=== PATIENT | male | born 1975 | race Asian ===

== ENCOUNTER 2018-05-03 22:11 | Inpatient (IN) | payer OTHER ==
[~2018-05-03] VITALS: Ht 167.6 cm; Wt 49.8 kg
[2018-05-03 23:10] LABS: HEMATOCRIT 30.3 % (38.0-50.0); HEMOGLOBIN 10.7 G/DL (12.5-16.6); MCH 29.3 PG (29.0-34.0); MCHC 35.3 G/DL (30.0-36.0); PLATELET COUNT 315 K/uL (156-360); RBC DIS.WIDTH-CV 11.9 % (11.8-14.6); RBC DIS.WIDTH-SD 36.3 % (39-53); RED BLOOD COUNT 3.65 M/uL (4.00-5.50); WHITE BLOOD COUNT 14.7 K/uL (4.1-10.2)
[2018-05-03 23:17] LABS: CARBON DIOXIDE (BICARBONATE) 22.4 MEQ/L (20-31)
[2018-05-03 23:21] LABS: CHLORIDE 86 mEq/L (99-109); POTASSIUM 4.6 mEq/L (3.7-5.4); SODIUM 133 mEq/L (136-147)
[2018-05-03 23:27] LABS: UREA NITROGEN (BUN) 54 mg/dL (9-23)
[2018-05-03 23:35] LABS: GFR ESTIMATE (CALCULATED) 24 mL/min/ (58.99-99999)
[2018-05-03 23:43] LABS: GLUCOSE 775 mg/dL (70-99)
[2018-05-04] VITALS (18 sets, daily range): BP systolic 97–169; BP diastolic 71–136
[2018-05-04 00:30] LABS: APPEARANCE CLEAR ((CLEAR)); BILIRUBIN NEGATIVE; BLOOD MODERATE; COLOR YELLOW ((YELLOW)); GLUCOSE (STRIP) >=500; KETONES 20; LEUKOCYTES LARGE; NITRITE NEGATIVE; PROTEIN (STRIP) 30; UROBILINOGEN 0.2 MG/DL (0.2-1.0)
[2018-05-04 00:33] LABS: BACTERIA NONE SEEN /HPF; EPITHELIAL CELLS NONE SEEN /HPF; MUCUS TRACE /LPF; UCUL ADDED? YES; WHITE BLOOD CELLS TNTC /HPF (0-5)
[2018-05-04 04:39] LABS: POTASSIUM 3.8 mEq/L (3.7-5.4); SODIUM 137 mEq/L (136-147)
[2018-05-04 04:40] LABS: GLUCOSE 396 mg/dL (70-99)
[2018-05-04 04:44] LABS: PHOSPHORUS 3.1 mg/dL (2.5-4.9)
[2018-05-04 04:45] LABS: UREA NITROGEN (BUN) 44 mg/dL (9-23)
[2018-05-04 04:50] LABS: CHLORIDE 98 mEq/L (99-109); CREATININE 2.1 mg/dL (0.6-1.3); GFR ESTIMATE (CALCULATED) 37 mL/min/ (58.99-99999)
[2018-05-04 04:54] LABS: LIPASE 25 U/L (1.0-51.0)
[2018-05-04 09:40] LABS: CHLORIDE 96 mEq/L (99-109); POTASSIUM 3.3 mEq/L (3.7-5.4); SODIUM 136 mEq/L (136-147)
[2018-05-04 09:42] LABS: GLUCOSE 216 mg/dL (70-99)
[2018-05-04 09:45] LABS: PHOSPHORUS 2.3 mg/dL (2.5-4.9)
[2018-05-04 09:46] LABS: CREATININE 1.9 mg/dL (0.6-1.3); GFR ESTIMATE (CALCULATED) 41 mL/min/ (58.99-99999); UREA NITROGEN (BUN) 35 mg/dL (9-23)
[2018-05-04 12:04] LABS: HEMOGLOBIN A1c (GLYCOHEMOGLOB) 11.7 % (Below 5.7)
[2018-05-04 12:25] LABS: CHLORIDE 98 MEQ/L (99-109); CREATININE 1.6 MG/DL (0.6-1.3); GFR ESTIMATE (CALCULATED) 50 mL/min/ (58.99-99999); GLUCOSE 144 mg/dL (70-99); PHOSPHORUS 2.4 mg/dL (2.5-4.9); POTASSIUM 3.3 MEQ/L (3.7-5.4); SODIUM 138 MEQ/L (136-147); UREA NITROGEN (BUN) 33 mg/dL (9-23)
[2018-05-04] MEDS ORDERED: OMEPRAZOLE20 M2 PO (13:56)
[2018-05-04] MEDS ORDERED: METFORMIN HCL500 MG PO (13:56)
[2018-05-04] MEDS ORDERED: LOVASTATIN10 MG PO (13:57)
[2018-05-04 16:34] LABS: CHLORIDE 95 MEQ/L (99-109); CREATININE 1.5 MG/DL (0.6-1.3); GFR ESTIMATE (CALCULATED) 54 mL/min/ (58.99-99999); GLUCOSE 139 mg/dL (70-99); PHOSPHORUS 2.4 mg/dL (2.5-4.9); POTASSIUM 3.5 MEQ/L (3.7-5.4); SODIUM 137 MEQ/L (136-147); UREA NITROGEN (BUN) 28 mg/dL (9-23)
[2018-05-04 22:18] LABS: CHLORIDE 94 mEq/L (99-109); POTASSIUM 3.3 mEq/L (3.7-5.4); SODIUM 136 mEq/L (136-147)
[2018-05-04 22:23] LABS: CREATININE 1.8 mg/dL (0.6-1.3); GFR ESTIMATE (CALCULATED) 44 mL/min/ (58.99-99999); PHOSPHORUS 2.4 mg/dL (2.5-4.9)
[2018-05-04 22:24] LABS: UREA NITROGEN (BUN) 26 mg/dL (9-23)
[2018-05-04 22:27] LABS: GLUCOSE 214 mg/dL (70-99)
[2018-05-05 00:01] VITALS: BP 149/108
[2018-05-05 01:01] VITALS: BP 164/112
[2018-05-05 02:03] VITALS: BP 156/100
[2018-05-05 03:58] VITALS: BP 160/70
[2018-05-05 06:37] LABS: HEMOGLOBIN 10.9 G/DL (12.5-16.6); MCH 28.7 PG (29.0-34.0); MCHC 35.2 G/DL (30.0-36.0); MCV 81.6 FL (86-99); PLATELET COUNT 330 K/uL (156-360); RBC DIS.WIDTH-SD 35.3 % (39-53); WHITE BLOOD COUNT 15.6 K/uL (4.1-10.2)
[2018-05-05 07:19] VITALS: BP 128/92
[2018-05-05 08:18] LABS: POTASSIUM 3.5 MEQ/L (3.7-5.4)
[2018-05-05 14:05] LABS: CREATININE 1.5 MG/DL (0.6-1.3)
[2018-05-05 16:41] VITALS: BP 109/67
[2018-05-06 00:55] VITALS: BP 100/61
[2018-05-06 06:17] LABS: HEMATOCRIT 29.3 % (38.0-50.0); HEMOGLOBIN 10.2 G/DL (12.5-16.6); MCH 28.7 PG (29.0-34.0); MCHC 34.8 G/DL (30.0-36.0); MCV 82.3 FL (86-99); PLATELET COUNT 331 K/uL (156-360); RBC DIS.WIDTH-CV 11.7 % (11.8-14.6); RBC DIS.WIDTH-SD 35.6 % (39-53); RED BLOOD COUNT 3.56 M/uL (4.00-5.50); WHITE BLOOD COUNT 8.8 K/uL (4.1-10.2)
[2018-05-06 06:42] LABS: CHLORIDE 90 MEQ/L (99-109); CREATININE 1.6 MG/DL (0.6-1.3); GFR ESTIMATE (CALCULATED) 50 mL/min/ (58.99-99999); GLUCOSE 264 mg/dL (70-99); POTASSIUM 3.2 MEQ/L (3.7-5.4); SODIUM 133 MEQ/L (136-147); UREA NITROGEN (BUN) 25 mg/dL (9-23)
[2018-05-06 06:45] LABS: MAGNESIUM 2.5 mg/dl (1.3-2.7)
[2018-05-06 08:25] VITALS: BP 106/70
[2018-05-06 15:30] VITALS: BP 126/87
[2018-05-06 23:13] VITALS: BP 152/88
[2018-05-07 06:54] LABS: ALBUMIN 2.9 G/DL (3.2-4.8); CHLORIDE 99 MEQ/L (99-109); CREATININE 1.5 MG/DL (0.6-1.3); GFR ESTIMATE (CALCULATED) 54 mL/min/ (58.99-99999); PHOSPHORUS 2.4 mg/dL (2.5-4.9); POTASSIUM 3.6 MEQ/L (3.7-5.4); SODIUM 138 MEQ/L (136-147); UREA NITROGEN (BUN) 17 mg/dL (9-23)
[2018-05-07 07:12] LABS: GLUCOSE 98 mg/dL (70-99)
[2018-05-07 07:43] VITALS: BP 124/81
[2018-05-07 08:12] LABS: MAGNESIUM 1.9 mg/dl (1.3-2.7)
[2018-05-07 16:25] VITALS: BP 107/59
[2018-05-07 20:42] VITALS: BP 101/62
[2018-05-07 23:34] VITALS: BP 118/82
[2018-05-08 06:46] LABS: ALBUMIN 2.9 G/DL (3.2-4.8); CHLORIDE 91 MEQ/L (99-109); CREATININE 1.8 MG/DL (0.6-1.3); GFR ESTIMATE (CALCULATED) 44 mL/min/ (58.99-99999); PHOSPHORUS 2.9 mg/dL (2.5-4.9); SODIUM 132 MEQ/L (136-147); UREA NITROGEN (BUN) 20 mg/dL (9-23)
[2018-05-08 06:52] LABS: GLUCOSE 336 mg/dL (70-99); POTASSIUM 4.4 MEQ/L (3.7-5.4)
[2018-05-08 07:12] VITALS: BP 107/58
[2018-05-08] MEDS ORDERED: DIABETA2.5 MG PO (13:12)
[2018-05-08] MEDS ORDERED: LEVEMIR FL100 UNIT/1 SC ×2 (13:12)
[2018-05-08] MEDS ORDERED: LISINOPRIL2.5 MG PO (13:12)
[2018-05-08 16:43] VITALS: BP 107/64
[2018-05-08 22:12] VITALS: BP 84/52
[2018-05-08 22:46] VITALS: BP 80/50
[2018-05-09 01:11] VITALS: BP 134/90
[2018-05-09 07:25] VITALS: BP 109/74
[2018-05-09 07:29] LABS: ALBUMIN 3.1 G/DL (3.2-4.8); CHLORIDE 92 MEQ/L (99-109); CREATININE 1.8 MG/DL (0.6-1.3); GFR ESTIMATE (CALCULATED) 44 mL/min/ (58.99-99999); PHOSPHORUS 3.4 mg/dL (2.5-4.9); POTASSIUM 4.5 MEQ/L (3.7-5.4); SODIUM 133 MEQ/L (136-147); UREA NITROGEN (BUN) 23 mg/dL (9-23)
[2018-05-09 07:32] LABS: GLUCOSE 114 mg/dL (70-99)
[2018-05-09] MEDS ORDERED: NOVOLOG MI100 UNIT/3 SC (15:48)
[2018-05-09] MEDS ORDERED: INSULIN SYRING1 EA53 MC (15:56)
[2018-05-09] MEDS ORDERED: TEST STRIPS MC (15:56)
[2018-05-09] MEDS ORDERED: 1ST TIER UNILE1 EAC1 MC (15:56)
[2018-05-09] MEDS ORDERED: CEFTRIAXONE2 G1 IM (15:59)
[2018-05-09 16:25] VITALS: BP 101/67
== END 2018-05-09 18:45 | disposition home or self-care (01) | DRG 638 ==
LOC: EME 22:11 → EDBD 22:11 → 5EAST 05-04 02:39 → EDOF 05-04 02:39 → ENRESERV 05-04 02:40 → 4WEST 05-04 03:41 → ENRESERV 05-04 23:38 → 5EAST 05-05 01:50
PROVIDERS: Emergency Medicine; Internal Medicine; Physician Assistant; Specialist; Surgery
DX: E11.10 Type 2 diabetes mellitus with ketoacidosis without coma (principal); N10 Acute pyelonephritis; B96.4 Proteus (mirabilis) (morganii) as the cause of diseases classified elsewhere; N17.9 Acute kidney failure, unspecified; E87.2 Acidosis; E87.6 Hypokalemia; E11.65 Type 2 diabetes mellitus with hyperglycemia; E86.0 Dehydration; E87.1 Hypo-osmolality and hyponatremia; E83.39 Other disorders of phosphorus metabolism; R00.0 Tachycardia, unspecified; I12.9 Hypertensive chronic kidney disease with stage 1 through stage 4 chronic kidney disease, or unspecified chronic kidney disease; N18.3 Chronic kidney disease, stage 3 (moderate); E11.22 Type 2 diabetes mellitus with diabetic chronic kidney disease; D64.9 Anemia, unspecified; K21.9 Gastro-esophageal reflux disease without esophagitis; Z91.14 Patient's other noncompliance with medication regimen
CPT/HCPCS: 71046; 74176; 76770; 78582; 80048; 80048 91; 80069; 81003; 82010; 82565; 82570; 82607; 82803; 82948; 83036; 83605; 83690; 83735; 84100; 84132; 84156; 84520; 85027; 85379; 87040; 87077; 87086; 87186; 87641; 93005; 99281; 99285; A9539; A9540; J0696; J1644; J1815; J2405; J2765; J3475; J3480; J7030; J7050; J7120

== ENCOUNTER 2018-06-04 17:21 | Inpatient (IN) | payer OTHER ==
[~2018-06-04] VITALS: Ht 162.6 cm; Wt 55.0 kg
[~2018-06-04 17:21] MED LIST: 1ST TIER UNILE1 EAC1 MC; CEFTRIAXONE2 G1 IM; DIABETA2.5 MG PO; INSULIN SYRING1 EA53 MC; LEVEMIR FL100 UNIT/1 SC; LISINOPRIL2.5 MG PO; LOVASTATIN10 MG PO; METFORMIN HCL500 MG PO; NOVOLOG MI100 UNIT/3 SC; OMEPRAZOLE20 M2 PO; TEST STRIPS MC
[2018-06-04 19:43] LABS: HEMATOCRIT 31.8 % (38.0-50.0); HEMOGLOBIN 10.7 G/DL (12.5-16.6); MCH 29.2 PG (29.0-34.0); MCHC 33.6 G/DL (30.0-36.0); RBC DIS.WIDTH-CV 13.2 % (11.8-14.6); RBC DIS.WIDTH-SD 42.2 % (39-53); RED BLOOD COUNT 3.66 M/uL (4.00-5.50); WHITE BLOOD COUNT 7.8 K/uL (4.1-10.2)
[2018-06-04 19:46] LABS: CHLORIDE 101 mEq/L (99-109); POTASSIUM 4.8 mEq/L (3.7-5.4); SODIUM 141 mEq/L (136-147)
[2018-06-04 19:48] LABS: GLUCOSE 301 mg/dL (70-99)
[2018-06-04 19:49] LABS: TOTAL PROTEIN 7.6 g/dL (6.4-8.3)
[2018-06-04 19:50] LABS: TOTAL BILIRUBIN 0.4 mg/dL (0.0-1.0)
[2018-06-04 19:52] LABS: ALKALINE PHOSPHATASE 71 IU/L (3-129); GFR ESTIMATE (CALCULATED) 39 mL/min/ (58.99-99999)
[2018-06-04 19:53] LABS: UREA NITROGEN (BUN) 27 mg/dL (9-23)
[2018-06-04 19:54] LABS: AST (GOT) 22 IU/L (2-34)
[2018-06-04 19:55] LABS: ALT (GPT) 27 IU/L (3-49)
[2018-06-04 20:28] LABS: BASOPHIL (%) 0.3 % (0-1); EOSINOPHIL (%) 0.8 % (0-5); EOSINOPHIL COUNT 0.1 K/uL (0-0.3); HEMATOCRIT 34.7 % (38.0-50.0); HEMOGLOBIN 11.7 G/DL (12.5-16.6); IMMATURE GRANULOCYTE (%) 0.8 % (0.0-0.7); LYMPHOCYTE (%) 12.4 % (15-42); LYMPHOCYTE COUNT 1.1 K/uL (1.0-2.8); MCHC 33.7 G/DL (30.0-36.0); MCV 85.9 FL (86-99); MONOCYTE (%) 3.3 % (3-12); MONOCYTE COUNT 0.3 K/uL (0-0.8); NEUTROPHIL (%) 82.4 % (45-76); NEUTROPHIL COUNT 7.5 K/uL (1.8-6.4); RBC DIS.WIDTH-CV 13.1 % (11.8-14.6); RBC DIS.WIDTH-SD 40.9 % (39-53); RED BLOOD COUNT 4.04 M/uL (4.00-5.50); WHITE BLOOD COUNT 9.1 K/uL (4.1-10.2)
[2018-06-04 20:33] LABS: INTER. NORMALIZED RATIO 1.2; PLATELET COUNT 231 K/uL (156-360)
[2018-06-04 20:36] LABS: PTT 30.2 SEC (25-37)
[2018-06-04 20:38] LABS: PLAT.SUFFICIENCY ADEQUATE
[2018-06-04 20:39] LABS: MAGNESIUM 1.2 mg/dL (1.3-2.7)
[2018-06-04 20:47] LABS: MCV 86.9 FL (86-99); PLATELET COUNT 199 K/uL (156-360)
[2018-06-04 20:50] LABS: TROP-I INTERPRETATION NEGATIVE; TROPONIN-I < 0.01 ng/mL (0.0-0.30)
[2018-06-04 21:00] LABS: APPEARANCE SL.HAZY ((CLEAR)); BILIRUBIN NEGATIVE; BLOOD SMALL; COLOR YELLOW ((YELLOW)); GLUCOSE (STRIP) >=500; KETONES 5; LEUKOCYTES LARGE; NITRITE NEGATIVE; PROTEIN (STRIP) 30; UROBILINOGEN 0.2 MG/DL (0.2-1.0)
[2018-06-04 21:25] LABS: BACTERIA RARE /HPF; CALCIUM OXALATE CRYSTALS 3+ /HPF; EPITHELIAL CELLS RARE /HPF; HYALINE CASTS 0-5 /LPF; MUCUS TRACE /LPF; RED BLOOD CELLS 0-5 /HPF (0-5); UCUL ADDED? YES
[2018-06-05] VITALS (8 sets, daily range): BP systolic 113–170; BP diastolic 74–100
[2018-06-05 08:49] LABS: CHLORIDE 98 MEQ/L (99-109); CREATININE 1.7 MG/DL (0.6-1.3); GFR ESTIMATE (CALCULATED) 47 mL/min/ (58.99-99999); GLUCOSE 262 mg/dL (70-99); POTASSIUM 4.2 MEQ/L (3.7-5.4); SODIUM 140 MEQ/L (136-147); UREA NITROGEN (BUN) 26 mg/dL (9-23)
[2018-06-05] MEDS ORDERED: NOVOLOG MI100 UNIT/3 SC (15:21)
[2018-06-05] MEDS ORDERED: LOPRESSOR25 MG PO (15:21)
[2018-06-06 04:07] VITALS: BP 147/63
[2018-06-06 06:06] LABS: CHLORIDE 94 MEQ/L (99-109); CREATININE 1.6 MG/DL (0.6-1.3); GFR ESTIMATE (CALCULATED) 50 mL/min/ (58.99-99999); SODIUM 136 MEQ/L (136-147); UREA NITROGEN (BUN) 22 mg/dL (9-23)
[2018-06-06 06:07] LABS: GLUCOSE 113 mg/dL (70-99); POTASSIUM 3.2 MEQ/L (3.7-5.4)
[2018-06-06 07:56] VITALS: BP 151/87
[2018-06-06 11:39] VITALS: BP 141/68
[2018-06-06 15:55] VITALS: BP 137/84
[2018-06-06 19:56] VITALS: BP 146/90
[2018-06-06 23:45] VITALS: BP 103/68
[2018-06-07 04:29] VITALS: BP 109/71
[2018-06-07 05:39] LABS: HEMATOCRIT 34.4 % (38.0-50.0); HEMOGLOBIN 11.7 G/DL (12.5-16.6); MCH 28.3 PG (29.0-34.0); MCV 83.3 FL (86-99); PLATELET COUNT 252 K/uL (156-360); RBC DIS.WIDTH-CV 12.9 % (11.8-14.6); RBC DIS.WIDTH-SD 39.2 % (39-53); RED BLOOD COUNT 4.13 M/uL (4.00-5.50); WHITE BLOOD COUNT 10.2 K/uL (4.1-10.2)
[2018-06-07 06:12] LABS: CHLORIDE 94 MEQ/L (99-109); CREATININE 1.6 MG/DL (0.6-1.3); GFR ESTIMATE (CALCULATED) 50 mL/min/ (58.99-99999); GLUCOSE 129 mg/dL (70-99); SODIUM 134 MEQ/L (136-147); UREA NITROGEN (BUN) 20 mg/dL (9-23)
[2018-06-07 06:15] LABS: POTASSIUM 4.3 MEQ/L (3.7-5.4)
[2018-06-07 07:15] VITALS: BP 127/86
[2018-06-07 11:09] VITALS: BP 154/102
[2018-06-07 11:10] VITALS: BP 129/90
[2018-06-07] MEDS ORDERED: PROTONIX40 MG PO (11:13)
== END 2018-06-07 13:30 | disposition home or self-care (01) | DRG 392 ==
LOC: EME 17:21 → EDOF 06-05 01:19 → 4SOUTH 06-05 01:19
PROVIDERS: Emergency Medicine; Hospitalist
DX: K29.00 Acute gastritis without bleeding (principal); N17.9 Acute kidney failure, unspecified; E86.0 Dehydration; I12.9 Hypertensive chronic kidney disease with stage 1 through stage 4 chronic kidney disease, or unspecified chronic kidney disease; E87.6 Hypokalemia; E11.65 Type 2 diabetes mellitus with hyperglycemia; N18.3 Chronic kidney disease, stage 3 (moderate); D64.9 Anemia, unspecified; R00.0 Tachycardia, unspecified; E11.22 Type 2 diabetes mellitus with diabetic chronic kidney disease; E11.43 Type 2 diabetes mellitus with diabetic autonomic (poly)neuropathy; K31.84 Gastroparesis; Z91.19 Patient's noncompliance with other medical treatment and regimen; Z82.49 Family history of ischemic heart disease and other diseases of the circulatory system; Z82.3 Family history of stroke; Z79.4 Long term (current) use of insulin
CPT/HCPCS: 74176; 80048; 80048 91; 80053; 81003; 82010; 82803; 82948; 83605; 83690; 83735; 83880; 84484; 85025; 85027; 85379; 85610; 85730; 87077; 87086; 87186; 99281; 99285; C9113; G0378; J0692; J1200; J1650; J1815; J2405; J2765; J3480; J7030